=== PATIENT | male | born 1980 | race Caucasian/White ===

== ENCOUNTER 2016-03-29 14:38 | Emergency (ER) | payer MEDICAID ==
[2016-03-29] MEDS ORDERED: ORPHENADRINE 60 MG/2 ML AMP ONE (15:56)
[2016-03-29] MEDS ORDERED: SODIUM CHLORIDE 0.9% 1,000 ML ONE (16:11)
== END 2016-03-29 17:40 | disposition home or self-care (01) ==
LOC: ER 14:38
DX: R26.2 Difficulty in walking, not elsewhere classified (principal); R20.2 Paresthesia of skin; R53.1 Weakness; G25.9 Extrapyramidal and movement disorder, unspecified; Z79.899 Other long term (current) drug therapy; F17.210 Nicotine dependence, cigarettes, uncomplicated
CPT/HCPCS: 36415; 71010; 80053; 81003; 85025; 85610; 96361; 96374